=== PATIENT | female | born 1955 | race Hispanic/Latino ===

== ENCOUNTER 2017-06-10 09:55 | Day surgery (SDC) | payer BC ==
--- NOTE | 2017-06-07 14:05 | EKG ---
Test Date: 2017-06-07 Test Time: 10:21:23 [employer] Salesperson: CARMEN MEASUREMENT RESULTS: Intervals: Rate: 55 CO: 170 QRSD: 68 QT: 444 QTc: 424 [place]: P: 19 CO: 170 QRS: 9 T: 16 INTERPRETIVE STATEMENTS: Sinus bradycardia Low voltage QRS Borderline ECG No previous ECG available for comparison Electronically Signed On 06-07-17 14:03:46 CDT by Maxime Ball
[2017-06-10] MEDS: OXYMETAZOLINE HCL 0.05% 30ML NAS SCH ×3 (10:27→10:37)
[2017-06-10] MEDS ORDERED: Ringers Lactate 1,000 ML IV ONE ×2 (10:41→13:30)
[2017-06-10] MEDS ORDERED: ONDANSETRON 4 MG/2 ML VIAL ONE (11:14)
[2017-06-10] MEDS ORDERED: MIDAZOLAM HCL 2 MG/2 ML INJ ONE (11:14)
[2017-06-10] MEDS ORDERED: LIDOCAINE 2% MPF 5 ML VIAL ONE (11:14)
[2017-06-10] MEDS ORDERED: PROPOFOL 200 MG/20 ML VIAL IV ONE (11:14)
[2017-06-10] MEDS ORDERED: FENTANYL CITR 100 MCG/2 ML ONE (11:15)
[2017-06-10] MEDS ORDERED: ROCURONIUM 50 MG/5 ML VIAL IV ONE (11:15)
[2017-06-10] MEDS ORDERED: LIDOCAINE 1% W/EPI 1:100,000 MDV 50 ML VIAL ONE (12:17)
[2017-06-10] MEDS ORDERED: OXYMETAZOLINE HCL 0.05% 30ML NAS ONE (12:59)
[2017-06-10] MEDS ORDERED: DEXAMETHASONE 10 MG/ML VIAL ONE (13:10)
[2017-06-10] MEDS ORDERED: GLYCOPYRROLATE 0.2 MG/ML SYR ONE (13:10)
[2017-06-10] MEDS ORDERED: NEOSTIGMINE 1 MG/ML -5 ML SYRINGE ONE (13:12)
[2017-06-10] MEDS ORDERED: BUPIVACA 0.25%/EPI 0.0005% MDV 50 ML VIAL ONE (13:22)
--- NOTE | 2017-06-10 13:38 | P.BOP ---
Preoperative diagnosis: venous blunt of lip, recurrent sinusitis Postoperative diagnosis: same Primary procedure: excision with primary closure of lip, B NE with dilation of frontal and max Nitroglycerin Neutralizer: NONE,NONE Estimated blood loss: 15ml Specimen: midline lower lip Anesthesia: General Complications: None Drain(s): Nasogastric Implants: none Fluids & blood products: crystalloid 1000ml Transferred to: Recovery Room Condition: Good
--- NOTE | 2017-06-11 01:23 | OP ---
Date of Procedure: 06/10/2017 Surgeon: Elizabeth Whelan MD Preoperative Diagnoses: Lower lip venous galarza and recurrent acute sinusitis. Postoperative Diagnoses: Lower lip venous Galarza and recurrent acute sinusitis with left septal spur a nd chronic rhinitis. Indications For Procedure: Sarah Cook presented with her current acute sinusitis and venous lak e. Post-treatment CT scans did not demonstrate any significant persistent opacification of the sinus es, but the ostiomeatal complex and frontal recess were very narrow. The risks, benefits, and altern atives to the procedure were discussed with the patient and due to concern for discomfort during the procedure, she opted for the procedure under general anesthetic. Description Of Procedure: The patient was brought to the operating room. She was placed under gener al anesthesia. The head of bed was turned to 90 degrees, and the face was prepped in a standard fash ion with Betadine. The face was draped in a sterile fashion. The lip was injected with approximatel y 0.5 mL of 0.25% Marcaine with epi in the area of the venous galarza. A vertical fusiform excision abigail und the venous galarza was performed including mucosa and a portion of the orbicularis keiko muscle. The specimen was sent to pathology for permanent section. Bleeding was controlled using needlepoint Bov ie electrocautery, and the defect was closed in a primary fashion using interrupted 4-0 chromic sutur es. This area was covered with gauze and the attention was turned to the nose. A 0-degree endoscope was used to perform a nasal endoscopy bilaterally and the Entellus balloon dilation system was prepa red in accordance with the uke driver's directions. Using the 0 degree endoscope, the Galt was us ed to carefully medialize the middle turbinate. On the left side, there was a septal spur, but this was not found to be prohibitive in terms of abscess and no septoplasty was indicated. The Entellus b alloon was advanced just behind the uncinate process and carefully repositioned until there was elimi nation within the frontal recess area. The balloon was inflated and removed. Repositioning was diff icult due to moderate amount of bleeding in the area, the balloon was therefore withdrawn and the mid dle meatus was packed with Afrin-soaked pledgets, and attention was turned to the right side. Sequen tial dilation of the right frontal recess was successful. After successful dilation of the right mavrin e, attention was turned to the left and the device was placed within the frontal recess and dilated w ith excellent illumination of the frontal sinus during the final dilation. The balloon was then arthur nfigured to a 125 degree angle for dilation of the maxillary sinuses. Using the 0 degree endoscope, the tip of the instrument was passed into the middle meatus and around the uncinate process. Once in position, the balloon was advanced over the semi-rigid guide and inflated with good medialization of the uncinate process noted. The device was carefully withdrawn and dilation was performed in a acacia lar fashion on the contralateral maxillary sinus. After successful dilation of both maxillary and fr ontal sinuses, Afrin-soaked pledgets were applied. After removal of the pledgets and suctioning of t he nasopharynx, the area was noted to be hemostatic. The patient's face was cleaned and dried, and s he was returned to care of the Anesthesia for awakening, extubation in the operating room, which proc eeded without difficulty. Complications: None. Implants: None. Disposition: The patient will be discharged home later today in the care of her family with saline i rrigations and follow up with Dr. Whelan in 10 days for postoperative evaluation. FARIBA/YOSELIN Voice ID: [id number] Report ID: [id number]
== END 2017-06-10 15:10 | disposition home or self-care (01) ==
LOC: OR 09:55
PROVIDERS: ATTEND Otolaryngology
PROC: 09JY8ZZ Inspection of Sinus, Via Natural or Artificial Opening Endoscopic (ICD-10-PCS; 2017-06-10)
PROC: 0CB10ZX Excision of Lower Lip, Open Approach, Diagnostic (ICD-10-PCS; principal; 2017-06-10 11:15)
DX: K13.0 Diseases of lips (principal); J01.01 Acute recurrent maxillary sinusitis; J31.0 Chronic rhinitis; J34.89 Other specified disorders of nose and nasal sinuses; Z83.3 Family history of diabetes mellitus; Z80.9 Family history of malignant neoplasm, unspecified
CPT/HCPCS: 88305; 93005; J1100; J2250; J2405; J2710; J3010

== ENCOUNTER 2022-08-26 10:15 | Emergency (ER) | payer OTHER ==
--- OUTSIDE RECORDS SUMMARY | 2022-08-26 10:24 | XMS REPORT | Continuity of Care Document ---
:1955 Author Organization [facility] t Address [address] [place] [address] Care Team Providers Name Role Phone FerraroSergio Nusrat Primary Care Physician LANG LOPEZ Attending Clinician Unavailable Nurse, Jasiel Posavanah Immunization Attending Clinician Unavailable Lang Lopez DO Attending Clinician Payers Payer Name Policy Type Policy Number Effective Date Expiration Date [facility] [id number] 2020 2021 CHOICE 00:00:00 00:00:00 Problems This patient has no known problems. Allergies, Adverse Reactions, Alerts Allergy Allergy Status Severity Reaction(s) Onset Inactive Treating Comm ents Source Name Type Date Date Clinician NO KNOWN Drug Active Univers ALLERGIE Class ity of [facility] Social History Social Habit Start Date Stop Date Quantity Comments Source Sex Assigned At [birth year] [facility] 00:00:00 00:00:00 [facility] Smoking Status Start Date Stop Date Source Unknown if ever smoked [facility] Medications This patient has no known medications. Immunizations Ordered Filled Immunization Date Status Comments Hina e Immunization Name Name SARS-COV-2 COVID-19 2021-02-16 Completed Unive rsity of PFIZER VACCINE 00:00:00 [facility] SARS-COV-2 COVID-19 2020-06-02 Completed Unive rsity of PFIZER VACCINE 00:00:00 [facility] SARS-COV-2 COVID-19 2020-05-12 Completed Unive rsity of PFIZER VACCINE 00:00:00 [facility] Procedures Procedure Date / Time Performed Performing Clinician Hina rodriges SARS-COV-2 COVID-19 2021-02-16 14:41:29 Doctor Unassigned, No [facility] [place] VACCINE,0.3ML,IM Name [facility] (PFIZER) Encounters Start End Encounter Admission Attending Care Care Encounter Source Date/Time Date/Time Type Type Clinicians Facility Department ID 2021-02-16 2021-02-16 Outpatient R ZARA [facility] [id number] Univers 08:20:00 08:07:32 [facility] 2021-02-16 2021-02-16 Imm/Inj Nurse, Adc Pob Immunization [facility] [id number] Univers 08:07:23 08:07:32 Visit Lang Lopez [id number] .10 [facility] [id number] Meliza ASHIO [phone] [facility] [address] Results This patient has no known results.
[2022-08-26] MEDS ORDERED: dexAMETHasone 10 MG/ML VIAL ONE (10:37)
--- NOTE | 2022-08-26 10:40 | EDPHYS ---
Physician Documentation [facility] Name: Sarah Cook Age: 67 yrs Sex: Female : 1955 Arrival Date: 08/26/2022 Time: 10:15 Bed 11 Private MD: ED Physician Durga Tomlinson HPI: 08/26 10:25 This 67 yrs old Female presents to ER via Ambulatory with complaints of Sinus jmm Pain, Sinus Congestion. 10:25 The patient or guardian reports cough. Onset: The symptoms/episode began/occurred jmm gradually, at an unknown time. Modifying factors: The symptoms are alleviated by nothing, the symptoms are aggravated by nothing. This is a 67 year old female with a history of hlp, that presents to the ED with complaints of congestion, sinus pressure, and sore throat. Denies fever. But states having malaise and fatigue. . Historical: - Allergies: 10:20 No Known Allergies; ll1 - PMHx: 10:20 Hyperlipidemia; ll1 - PSHx: 10:20 None; ll1 - Immunization history:: Client reports receiving the 2nd dose of the Covid vaccine. - Social history:: Smoking status: Patient denies any tobacco usage or history of. ROS: 10:25 Eyes: Negative for injury, pain, redness, and discharge. jmm 10:25 Cardiovascular: Negative for chest pain, palpitations, and edema, Respiratory: Negative for shortness of breath, cough, wheezing, and pleuritic chest pain, Abdomen/GI: Negative for abdominal pain, nausea, vomiting, diarrhea, and constipation, Back: Negative for injury and pain. 10:25 Constitutional: Positive for fatigue, malaise. 10:25 ENT: Positive for sinus congestion, sore throat. 10:25 All other systems are negative. Exam: 10:25 Constitutional: This is a well developed, well nourished patient who is awake, alert, jmm and in no acute distress. Head/Face: atraumatic. Eyes: EOMI, no conjunctival erythema appreciated 10:25 Chest/axilla: Normal chest wall appearance and motion. Cardiovascular: Regular rate and rhythm. No edema appreciated Respiratory: Normal respirations, no respiratory distress appreciated Abdomen/GI: Non distended Back: Normal ROM Skin: General appearance color normal MS/ Extremity: Moves all extremities, no obvious deformities appreciated, no edema noted to the lower extremities Neuro: Awake and alert Psych: Behavior is normal, Mood is normal, Patient is cooperative and pleasant 10:25 ENT: Posterior pharynx: erythema, that is mild. Vital Signs: 10:23 BP 122 / 79; Pulse 72; Resp 16; Temp 99.2; Pulse Ox 99% ; Weight 72.57 kg; Height 5 ft. ll1 2 in. ; Pain 5/10; 10:23 Body Mass Index 29.26 (72.57 kg, 157.48 cm) ll1 10:23 Pain Scale: Adult ll1 MDM: 10:25 Patient medically screened. [facility] 10:25 Differential Diagnosis: Upper Respiratory Infection Sinusitis Pharyngitis. Data [facility] reviewed: vital signs, nurses notes. I considered the following discharge prescriptions or medication management in the emergency department Medications were administered in the Emergency Department. See MAR. Historians other than the Patient: . Counseling: I had a detailed discussion with the patient and/or guardian regarding: the historical points, exam findings, and any diagnostic results supporting the discharge/admit diagnosis, the need for outpatient follow up, to return to the emergency department if symptoms worsen or persist or if there are any questions or concerns that arise at home. Administered Medications: 10:37 Drug: Dexamethasone IM 10 mg Route: IM; Site: left gluteus; iw 10:45 Follow up: Response: No adverse reaction iw Disposition Summary: 08/26/22 10:40 Discharge Ordered Location: Home [facility] Condition: Stable [facility] Diagnosis - Nasal congestion [facility] - Acute pharyngitis, unspecified [facility] Followup: [facility] - With: Private Physician - When: 2 - 3 days - Reason: Recheck today's complaints, Continuance of care, Re-evaluation by your physician Discharge Instructions: - Discharge Summary Sheet [facility] - Pharyngitis [facility] - Sinusitis, Adult [facility] Forms: - Medication Reconciliation Form [facility] - Thank You Letter [facility] - Antibiotic Education [facility] - Prescription Opioid Use [facility] Prescriptions: - cefdinir 300 mg Oral capsule - take 1 capsule by ORAL route 2 times per day for 10 days; 20 capsule; Refills: [facility] 0, Product Selection Permitted - Medrol (Srikanth) 4 mg Oral Tablets, Dose Pack - take 1 tablet by ORAL route as directed - follow package instructions; 1 jm packet; Refills: 0, Product Selection Permitted Signatures: Yaakov Beckwith PA PA jmm Williams, Irene, RN RN iw Lola Rosario RN RN ll1
--- NOTE | 2022-08-26 10:40 | ER ---
Nurse's Notes [facility] Name: Sarah Cook Age: 67 yrs Sex: Female : 1955 Arrival Date: 08/26/2022 Time: 10:15 Bed 11 Private MD: Diagnosis: Nasal congestion;Acute pharyngitis, unspecified Presentation: 08/26 10:20 Coronavirus screen: Vaccine status: Patient reports receiving the 2nd dose of the covid ll1 vaccine. Client denies travel out of the [place] in the last 14 days. congestion, runny nose, Client presents with at least one sign or symptom that may indicate coronavirus-19. Standard/surgical mask placed on the client. Ebola Screen: Patient denies travel to an Ebola-affected area in the 21 days before illness onset. 10:20 Method Of Arrival: Ambulatory ll1 10:21 Initial Sepsis Screen: Does the patient meet any 2 criteria? No. Patient's initial ll1 sepsis screen is negative. Does the patient have a suspected source of infection? Yes: Other: r/o sinus infection. Risk Assessment: Do you want to hurt yourself or someone else? Patient reports no desire to harm self or others. Onset of symptoms was August 20, 2022. 10:21 Acuity: ISAMAR 4 ll1 10:23 Chief complaint: Patient states: Sinus congestion, drainage, facial pain, watery eyes ll1 since Tuesday. No fevers. Triage Assessment: 10:22 General: Appears in no apparent distress. Behavior is calm, cooperative, appropriate ll1 for age. EENT: Eyes are tearing on outer aspect of conjuctiva of right eye and inner aspect of conjuctiva of right eye Reports nasal congestion nasal discharge pain in right eye, right cheek, nose, left cheek and left eye. Neuro: Reports headache. 10:50 Pain: Also complains of no other associated symptoms. iw Historical: - Allergies: 10:20 No Known Allergies; ll1 - PMHx: 10:20 Hyperlipidemia; ll1 - PSHx: 10:20 None; ll1 - Immunization history:: Client reports receiving the 2nd dose of the Covid vaccine. - Social history:: Smoking status: Patient denies any tobacco usage or history of. Screenin:39 [facility] ED Fall Risk Assessment (Adult) History of falling in the last 3 months, iw including since admission No falls in past 3 months (0 pts). Abuse screen: Denies threats or abuse. Denies injuries from another. Nutritional screening: No deficits noted. Tuberculosis screening: No symptoms or risk factors identified. Assessment: 10:38 General: Appears in no apparent distress. Behavior is calm, cooperative. Pain: iw Complains of pain in face. Neuro: Level of Consciousness is awake, alert, obeys commands, Oriented to person, place, time, situation, Moves all extremities. Full function. Cardiovascular: Patient's skin is warm and dry. Respiratory: Respiratory effort is even, unlabored, Respiratory pattern is regular, symmetrical. Derm: Skin is intact, is healthy with good turgor. Musculoskeletal: Range of motion: intact in all extremities. Vital Signs: 10:23 BP 122 / 79; Pulse 72; Resp 16; Temp 99.2; Pulse Ox 99% ; Weight 72.57 kg; Height 5 ft. ll1 2 in. ; Pain 5/10; 10:23 Body Mass Index 29.26 (72.57 kg, 157.48 cm) ll1 10:23 Pain Scale: Adult ll1 ED Course: 10:17 Patient arrived in ED. rg4 10:18 Yaakov Beckwith PA is PHCP. barb 10:18 Durga Tomlinson MD is Attending Physician. [facility] 10:22 Triage completed. ll1 10:22 Arm band placed on Patient placed in an exam room, on a stretcher. ll1 10:29 Bridget Ramírez, RN is Primary Nurse. iw 10:39 No provider procedures requiring assistance completed. Patient did not have IV access iw during this emergency room visit. 10:50 Patient has correct armband on for positive identification. iw Administered Medications: 10:37 Drug: Dexamethasone IM 10 mg Route: IM; Site: left gluteus; iw 10:45 Follow up: Response: No adverse reaction iw Medication: 10:39 VIS not applicable for this client. iw Outcome: 10:40 Discharge ordered by . [facility] 10:50 Discharged to home ambulatory, with family. iw 10:50 Condition: good 10:50 Discharge instructions given to patient, Instructed on discharge instructions, follow up and referral plans. medication usage, Demonstrated understanding of instructions, follow-up care, medications, Prescriptions given X 2. 10:51 Patient left the ED. iw Signatures: Yaakov Beckwith PA PA jmm Williams, Irene, RN RN iw Samantha De La Cruz4 Lola Rosario RN RN ll1
[2022-08-26 10:55] VITALS: BP 122/79; TEMP 99.2; O2SAT 99
== END 2022-08-26 10:51 | disposition home or self-care (01) ==
LOC: ER 10:15
DX: R09.81 Nasal congestion (principal); J02.9 Acute pharyngitis, unspecified; R53.83 Other fatigue; R53.81 Other malaise
CPT/HCPCS: 96372; 99284; J1100

== ENCOUNTER 2022-08-28 10:28 | Emergency (ER) | payer OTHER ==
--- OUTSIDE RECORDS SUMMARY | 2022-08-28 10:31 | XMS REPORT | Continuity of Care Document ---
:1955 Author Organization [facility] t Address [address] [facility] [place] [address] Care Team Providers Name Role Phone FerraroSergio Nusrat Primary Care Physician LANG LOPEZ Attending Clinician Unavailable Nurse, Jasiel Posavanah Immunization Attending Clinician Unavailable Lang Lopez DO Attending Clinician Payers Payer Name Policy Type Policy Number Effective Date Expiration Date [facility] [id number] 2020 2021 CHOICE 00:00:00 00:00:00 Problems This patient has no known problems. Allergies, Adverse Reactions, Alerts Allergy Allergy Status Severity Reaction(s) Onset Inactive Treating Comm ents Source Name Type Date Date Clinician NO KNOWN Drug Active Univers ALLERGIE Class [facility]y of [facility] Social History Social Habit Start Date Stop Date Quantity Comments Source Sex Assigned At [birth year] [facility] 00:00:00 00:00:00 [facility] Smoking Status Start Date Stop Date Source Unknown if ever smoked [facility] Medications This patient has no known medications. Immunizations Ordered Filled Immunization Date Status Comments Hina e Immunization Name Name SARS-COV-2 COVID-19 2021-02-16 Completed Unive rsity of PFIZER VACCINE 00:00:00 [facility] SARS-COV-2 COVID-19 2020-06-02 Completed Unive rsity of PFIZER VACCINE 00:00:00 [facility] SARS-COV-2 COVID-19 2020-05-12 Completed Unive rsity of PFIZER VACCINE 00:00:00 [facility] Procedures Procedure Date / Time Performed Performing Clinician Hina rodriges SARS-COV-2 COVID-19 2021-02-16 14:41:29 Doctor Unassigned, No [facility] [place] VACCINE,0.3ML,IM Name [facility] (PFIZER) Encounters Start End Encounter Admission Attending Care Care Encounter Source Date/Time Date/Time Type Type Clinicians Facility Department ID 2021-02-16 2021-02-16 Outpatient R ZARA [facility] [id number] Univers 08:20:00 08:07:32 [facility] 2021-02-16 2021-02-16 Imm/Inj Nurse, Adc Pob Immunization [facility] [id number] Univers 08:07:23 08:07:32 Visit Lang Lopez [id number] .10 [facility] [id number] Meliza SAHIO [phone] [facility] [address] Results This patient has no known results.
--- NOTE | 2022-08-28 10:58 | EDPHYS ---
Physician Documentation [facility] Name: Sarah Cook Age: 67 yrs Sex: Female : 1955 Arrival Date: 08/28/2022 Time: 10:28 Bed DX3 Private MD: ED Physician Alexy Alcaraz HPI: 08/28 10:54 This 67 yrs old Female presents to ER via Ambulatory with complaints of Nausea.rn 10:54 The patient presents to the emergency department with nausea. Onset: The rn symptoms/episode began/occurred yesterday. Possible causes: antibiotics. The symptoms are aggravated by nothing. The symptoms are alleviated by nothing. Associated signs and symptoms: Pertinent positives: nausea, Pertinent negatives: abdominal pain, diarrhea, fever. Severity of symptoms: At their worst the symptoms were mild in the emergency department the symptoms are unchanged. The patient has not experienced similar symptoms in the past. The patient has been recently seen at the [facility]. Just seen here 2 days ago, started on steroids and cefdinir, not tolerating them, one or both are causing nausea. Otherwise feeling better after starting zyrtec-d. No fever. NO sob. . Historical: - Allergies: 10:44 No Known Allergies; bp - Home Meds: 10:44 atorvastatin 10 mg Oral tab 1 tab once daily [Active]; bp - PMHx: 10:44 Hyperlipidemia; bp - Immunization history:: Adult Immunizations up to date. - Social history:: Smoking status: Patient denies any tobacco usage or history of. - Family history:: not pertinent. - Hospitalizations: : No recent hospitalization is reported. ROS: 10:54 Constitutional: Negative for fever, chills, and weight loss, Eyes: Negative for injury, rn pain, redness, and discharge, ENT: + nasal congestion and sore throat Neck: Negative for injury, pain, and swelling, Cardiovascular: Negative for chest pain, palpitations, and edema, Respiratory: Negative for shortness of breath, cough, wheezing, and pleuritic chest pain, Neuro: Negative for headache, weakness, numbness, tingling, and seizure. Exam: 10:54 Constitutional: This is a well developed, well nourished patient who is awake, alert, rn and in no acute distress. ENT: MMM, no stridor, no oral swelling Neck: Trachea midline, no masses palpated, and no cervical lymphadenopathy. Supple, full range of motion without nuchal rigidity, or vertebral point tenderness. No Meningismus. Cardiovascular: Regular rate and rhythm. No pulse deficits. Respiratory: No increased work of breathing, no retractions or nasal flaring. Skin: No rash or swelling. Neuro: Awake and alert, GCS 15 Vital Signs: 10:43 BP 127 / 80; Pulse 66; Resp 16; Temp 97.8; Pulse Ox 99% ; bp MDM: 10:34 Patient medically screened. rn 10:54 Differential diagnosis: medication intolerance, nausea, viral syndrome, allergies. Data rn reviewed: vital signs, nurses notes, and as a result, I will discharge patient. Counseling: I had a detailed discussion with the patient and/or guardian regarding: the historical points, exam findings, and any diagnostic results supporting the discharge/admit diagnosis, the need for outpatient follow up, to return to the emergency department if symptoms worsen or persist or if there are any questions or concerns that arise at home. Special discussion: I discussed with the patient/guardian in detail that at this point there is no indication for admission to the hospital. It is understood, however, that if the symptoms persist or worsen the patient needs to return immediately for re-evaluation. 10:54 ED course: Pt requests changing of medication, states has tolerated amoxicillin before. rn Will dc steroids as likely doesn't need them. Recommend nasal spray and OTC allergy medication as well. . Administered Medications: No medications were administered Disposition Summary: 08/28/22 10:58 Discharge Ordered Location: Home rn Problem: new rn Symptoms: have improved rn Condition: Stable rn Diagnosis - Nausea rn Followup: rn - With: Private Physician - When: As needed - Reason: Recheck today's complaints, Re-evaluation by your physician Discharge Instructions: - Discharge Summary Sheet rn - Nausea, Adult rn Forms: - Medication Reconciliation Form rn - Thank You Letter rn - Antibiotic wrap yarn sorter - Prescription Opioid Use rn Prescriptions: - Amoxicillin 875 mg Oral Tablet - take 1 tablet by ORAL route every 12 hours for 10 days; 20 tablet; Refills: 0, rn Product Selection Permitted Signatures: Alexy Alcaraz MD MD rn Peltier, Brian, RN RN bp
--- NOTE | 2022-08-28 10:58 | ER ---
Nurse's Notes [facility] Name: Sarah Cook Age: 67 yrs Sex: Female : 1955 Arrival Date: 08/28/2022 Time: 10:28 Bed DX3 Private MD: Diagnosis: Nausea Presentation: 08/28 10:43 Chief complaint: Patient states: NAUSEA WITH PRESCRIBED ABX x2 DAYS, REQUESTING NEW bp PRESCRIPTION. Coronavirus screen: At this time, the client does not indicate any symptoms associated with coronavirus-19. Ebola Screen: No symptoms or risks identified at this time. Initial Sepsis Screen: Does the patient meet any 2 criteria? No. Patient's initial sepsis screen is negative. Does the patient have a suspected source of infection? No. Patient's initial sepsis screen is negative. Risk Assessment: Do you want to hurt yourself or someone else? Patient reports no desire to harm self or others. Onset of symptoms is unknown. 10:43 Method Of Arrival: Ambulatory bp 10:43 Acuity: ISAMAR 5 bp Triage Assessment: 10:44 General: Appears in no apparent distress. Behavior is calm, cooperative, appropriate bp for age. Pain: Denies pain. EENT: No deficits noted. Neuro: No deficits noted. Cardiovascular: No deficits noted. Respiratory: No deficits noted. GI: Reports nausea. : No signs and/or symptoms were reported regarding the genitourinary system. Derm: No deficits noted. Musculoskeletal: No deficits noted. Historical: - Allergies: 10:44 No Known Allergies; bp - Home Meds: 10:44 atorvastatin 10 mg Oral tab 1 tab once daily [Active]; bp - PMHx: 10:44 Hyperlipidemia; bp - Immunization history:: Adult Immunizations up to date. - Social history:: Smoking status: Patient denies any tobacco usage or history of. - Family history:: not pertinent. - Hospitalizations: : No recent hospitalization is reported. Screenin:48 [facility] ED Fall Risk Assessment (Adult) History of falling in the last 3 months, mb9 including since admission No falls in past 3 months (0 pts) Confusion or Disorientation No (0 pts) Intoxicated or Sedated No (0 pts) Impaired Gait No (0 pts) Mobility Assist Device Used No (0 pt) Altered Elimination No (0 pt) Score/Fall Risk Level 0 - 2 = Low Risk Oriented to surroundings, Maintained a safe environment, Educated pt \T\ family on fall prevention, incl call for assistance when getting out of bed. Abuse screen: Denies threats or abuse. Nutritional screening: No deficits noted. Tuberculosis screening: No symptoms or risk factors identified. Assessment: 11:45 Reassessment: see triage assessment. mb9 Vital Signs: 10:43 BP 127 / 80; Pulse 66; Resp 16; Temp 97.8; Pulse Ox 99% ; bp ED Course: 10:29 Patient arrived in ED. ts1 10:34 Alexy Alcaraz MD is Attending Physician. rn 10:44 Triage completed. bp 11:48 Arm band placed on. mb9 11:48 No provider procedures requiring assistance completed. Patient did not have IV access mb9 during this emergency room visit. Administered Medications: No medications were administered Medication: 11:48 VIS not applicable for this client. mb9 Outcome: 10:58 Discharge ordered by . rn 11:48 Discharged to home ambulatory. mb9 11:48 Condition: stable 11:48 Discharge instructions given to patient, Instructed on discharge instructions, follow up and referral plans. Demonstrated understanding of instructions, follow-up care, medications, Prescriptions given X 1. 11:48 Patient left the ED. mb9 Signatures: Alexy Alcaraz MD MD rn Peltier, Brian RN RN Sandi Cole RN RN mb9 Loulou Ray PAS PAS ts1
[2022-08-28 11:54] VITALS: BP 127/80; TEMP 97.8; O2SAT 99
== END 2022-08-28 11:48 | disposition home or self-care (01) ==
LOC: ER 10:28
DX: R11.0 Nausea (principal); E78.5 Hyperlipidemia, unspecified
CPT/HCPCS: 99283

== ENCOUNTER 2024-07-03 14:25 | Emergency (ER) | payer OTHER ==
--- OUTSIDE RECORDS SUMMARY | 2024-07-03 14:29 | XMS REPORT | Continuity of Care Document ---
Author Name Unknown Address [address] [facility] [place] [address] [facility] Address [address] [facility] [address] [place] [address] Care Team Providers Care Human Resources Hr Representative Name Role Phone Ferraro Sergio Nusrat Primary Care Physician [phone]- [phone] [email or web address] Attending Clinician Unavaila LANG Maxwell Attending Clinician Unavail able Nurse, Adc Pob Immunization Attending Clinician Lang Pelayo DO Attending Clinician [phone] [email or web address] aa_S Admitting Clinician Reneea viridiana Payers Payer Name Policy Type Policy Number Effective Date Expirati on Date Source [facility] - MEDICARE COMPLETE (MEDICARE REPLACEMENT HMO) [id number] [facility] [id number] 2020 00:00:00 2021 00:00:00 Problems Condition Name Condition Details Condition Category Status Onset Date Resolution Date Last Treatment Date Treating Clinician Comments Source Vitamin D deficiency Vitamin D Deficiency Problem Active 05-24 00:00: 00 [facility] Sensation as if bladder still full Sensation as If Bladder Still Full Problem Active 05-20 00:00: 00 [facility] Screening mammograph y Screening Mammograph y Problem Active - 00:00: 00 [facility] Elevated blood-pres sure reading without diagnosis of hypertensi on Elevated Blood-pres sure Reading without Diagnosis of Hypertensi on Problem Active 05-19 00:00: 00 [facility] Urge incontinen ce of urine Urge Incontinen ce of Urine Problem Active 12-05 00:00: 00 [facility] Disorder of bone Disorder of Bone Problem Active 12-05 00:00: 00 [facility] Atrophic vaginitis Atrophic Vaginitis Problem Active 15 00:00: 00 [facility] Bone density finding Bone Density Finding Problem Active 11-17 00:00: 00 [facility] Gynecologi lory examinatio n abnormal Gynecologi lory Examinatio n Abnormal Problem Active 11-17 00:00: 00 [facility] Allergies, Adverse Reactions, Alerts Allergy Name Allergy Type Status Severity Reaction(s) Onset Date Inactive Date Treating Clinician Comments Source NO KNOWN ALLERGIE S Drug Class Active [facility] Social History Social Habit Start Date Stop Date Quantity Comments Source Sex Assigned At 1955 00:00:00 1955 00:00:00 [facility] Smoking Status Start Date Stop Date Source Never Smoker [facility] Unknown if ever smoked [facility] Medications Ordered Medication Name Filled Medication Name Start Date Stop Date Current Medication? Ordering Clinician Indication Dosage Frequency Signature (SIG) Comments Components Source estradiol 0.01% (0.1 mg/gram) vaginal cream 0.5gm as directed; 3 times a week; 30 days estradiol 0.01% (0.1 mg/gram) vaginal cream 0.5gm as directed; 3 times a week; 30 days 05-24 00:00: 00 No estradiol 0.01% (0.1 mg/gram) vaginal cream 0.5gm as directed; 3 times a week; 30 days [facility] atorvastati n atorvastati n No atorvastat in [facility] Vital Signs Vital Name Observation Time Observation Value Comments S ource BMI (Body Mass Index) 2023-05-26 00:00:00 28.7 kg/m2 [facility] Body Weight 2023-05-26 00:00:00 161.8 [lb_av] [facility] Height 2023-05-26 00:00:00 63 [in_i] [facility] BP Diastolic 2023-05-26 00:00:00 71 mm[Hg] [facility] BP Systolic 2023-05-26 00:00:00 135 mm[Hg] [facility] Procedures Procedure Date / Time Performed Performing Clinicia n Source MAMMO, screening, digital, bilateral 2023-05-26 00:00:00 [facility] DEXA 2023-05-26 00:00:00 Veena Wilson edical SARS-COV-2 COVID-19 VACCINE,0.3ML,IM (PFIZER) 2021-02-16 14:41:29 Doctor Unassigned, [place] [facility] Procedure on Root Canal of Tooth 2017-12-05 00:00:00 [facility] Tubal Ligation [facility]ica l Plan of Care Planned Activity Planned Date Details Comments Source Diagnostic Test Pending 2023-05-26 00:00:00 noninvasive colorectal cancer DNA + occult blood screening, QL, stool [code = noninvasive colorectal cancer DNA + occult blood screening, QL, stool] [facility] Encounters Start Date/Time End Date/Time Encounter Type Admission Type Attending Clinicians Care Facility Care Department Encounter ID Source 2023-05-26 00:00:00 2023-05-26 00:00:00 Outpatient [email or web address] [email or web address]_S [facility] [id number] [facility] 2023-05-26 00:00:00 2023-05-26 00:00:00 NINA Levi: [address], [facility] [address], [place] [address] , Ph. [facility] - [email or web address]_La [facility]* [id number] [facility] 2023-05-25 00:00:00 2023-05-25 00:00:00 Outpatient [email or web address] diyala_S [facility] [id number] [facility] 2023-01-19 00:00:00 2023-01-19 00:00:00 Outpatient [email or web address] [email or web address]_S [facility] [id number] [facility] 2021-02-16 08:20:00 2021-02-16 08:07:32 Outpatient LANG ORANTES [facility] [id number] [facility] 2021-02-16 08:07:23 2021-02-16 08:07:32 Imm/Inj Visit Nurse, Jasiel Posavanah Immunizatio Lang Casey [facility] [id number] [facility]
[2024-07-03] MEDS ORDERED: TETRACAINE HCL 0.5% 4ML OPTH ONE (15:51)
[2024-07-03] MEDS ORDERED: FLUORESCEIN SODIUM 1 MG/WRAP ONE (15:51)
--- NOTE | 2024-07-03 16:18 | EDPHYS ---
Physician Documentation [facility] Name: Sarah Cook Age: 68 yrs Sex: Female : 1955 Arrival Date: 07/03/2024 Time: 14:25 Bed 2 Private MD: ED Physician Kwadwo Mcmillan HPI: 07/03 17:28 This 68 yrs old Female presents to ER via Ambulatory with complaints of Eye rt Pain, Eye Problem. 17:28 Patient presents to the ED with concern about 1 hour prior to arrival. Patient states rt this occurred after she wiped, may have hit her eye with a fingernail. Denies other acute complaints at this time, symptoms are mild in severity, no other aggravating or elevating factors. Right eye pain, tearing. Historical: - Allergies: 14:59 No Known Allergies; iw - Home Meds: 14:59 atorvastatin 10 mg Oral tab 1 tab once daily [Active]; iw - PMHx: 14:59 Hyperlipidemia; iw - Immunization history:: Adult Immunizations up to date. - Infectious Disease History:: Denies. - Family history:: not pertinent. - Social history:: Smoking status: unknown. ROS: 17:28 Constitutional: Negative for fever, chills, and weight loss, MS/Extremity: Negative for rt injury and deformity, Skin: Negative for injury, rash, and discoloration, Neuro: Negative for headache, weakness, numbness, tingling, and seizure, 17:28 Eyes: Positive for pain, Negative for redness, Exam: 17:28 Constitutional: This is a well developed, well nourished patient who is awake, alert, rt and in no acute distress. Head/Face: Normocephalic, atraumatic. 17:28 Eyes: Extraocular muscles are intact, pupils equally round and reactive to light, no conjunctival injection noted, there is a focal area of fluorescein uptake at about 12:00 left pupil, Fernandez sign is negative, eyelids everted, no foreign bodies identified. Vital Signs: 15:00 BP 123 / 73; Pulse 64; Resp 18; Temp 98.6(O); Pulse Ox 98% on R/A; iw MDM: 14:57 Medical Screening Exam initiated rt 17:28 Differential diagnosis: Corneal abrasion of Corneal ulcer of. Differential diagnosis: rt Foreign body in. Data reviewed: vital signs, nurses notes. Counseling: I had a detailed discussion with the patient and/or guardian regarding the historical points, exam findings, and any diagnostic results supporting the discharge/admit diagnosis, the need for outpatient follow up, to return to the emergency department if symptoms worsen or persist or if there are any questions or concerns that arise at home. Response to treatment: the patient's symptoms have markedly improved after treatment. 07/03 15:03 Order name: Eye Tray; Complete Time: 15:58 rt 07/03 15:03 Order name: Fluoresene Opth strip; Complete Time: 15:58 rt Administered Medications: 16:11 Drug: Tetracaine Ophthalmic Drops 0.5 % 1 drops Ophthalmic once Route: Ophthalmic; ph Site: right eye; 16:20 Follow up: Response: No adverse reaction ap3 Disposition Summary: 07/03/24 16:18 Discharge Ordered Notes: Location: Home rt Problem: new rt Symptoms: have improved rt Condition: Stable rt Diagnosis - Injury of conjunctiva and corneal abrasion without foreign body, right eye rt Followup: rt - With: Jr Zhao MD - When: 2 - 3 days - Reason: Discharge Instructions: - Discharge Summary Sheet rt - Corneal Abrasion rt Forms: - Medication Reconciliation Form rt - Antibiotic Education rt - Prescription Opioid Use rt - Patient Portal Instructions rt - Leadership Thank You Letter rt Prescriptions: - Erythromycin 5 mg/gram (0.5 %) Ophthalmic ointment - apply 1 ribbon OPHTHALMIC route every 8 hours; 1 Each; Refills: 0, Product rt Selection Permitted Signatures: Bridget Ramírez RN KAMRYN Loly Connor RN RN Renetta Cadena RN RN ap3 Kwadwo Mcmillan MD MD rt
--- NOTE | 2024-07-03 16:18 | ER ---
Nurse's Notes [facility] Name: Sarah Cook Age: 68 yrs Sex: Female : 1955 Arrival Date: 07/03/2024 Time: 14:25 Bed 2 Private MD: Diagnosis: Injury of conjunctiva and corneal abrasion without foreign body, right eye Presentation: 07/03 15:00 Chief complaint: Patient states: RIGHT EYE PAIN/IRRITATION AFTER WIPING it with her iw sleeve. Coronavirus screen: At this time, the client does not indicate any symptoms associated with coronavirus-19. Ebola Screen: No symptoms or risks identified at this time. Mechanism of Injury: No Mechanism of Injury. The patient denies any loss of vision. Initial Sepsis Screen: Does the patient meet any 2 criteria? No. Patient's initial sepsis screen is negative. Does the patient have a suspected source of infection? No. Patient's initial sepsis screen is negative. Risk Assessment: Do you want to hurt yourself or someone else? Patient reports no desire to harm self or others. Onset of symptoms was July 03, 2024. 15:00 Acuity: ISAMAR 4 iw 15:00 Method Of Arrival: Ambulatory iw Triage Assessment: 15:00 General: Appears in no apparent distress. Behavior is calm. Pain: Complains of pain in iw right eye. EENT: Eyes are tearing on outer aspect of conjuctiva of right eye and inner aspect of conjuctiva of right eye Sclera/Cornea are reddened in outer aspect of conjuctiva of right eye and inner aspect of conjuctiva of right eye. Historical: - Allergies: 14:59 No Known Allergies; iw - Home Meds: 14:59 atorvastatin 10 mg Oral tab 1 tab once daily [Active]; iw - PMHx: 14:59 Hyperlipidemia; iw - Immunization history:: Adult Immunizations up to date. - Infectious Disease History:: Denies. - Family history:: not pertinent. - Social history:: Smoking status: unknown. Screenin:18 [facility] ED Fall Risk Assessment (Adult) History of falling in the last 3 months, ap3 including since admission No falls in past 3 months (0 pts) Confusion or Disorientation No (0 pts) Intoxicated or Sedated No (0 pts) Impaired Gait No (0 pts) Mobility Assist Device Used No (0 pt) Altered Elimination No (0 pt) Score/Fall Risk Level 0 - 2 = Low Risk Oriented to surroundings, Maintained a safe environment, Educated pt \T\ family on fall prevention, incl call for assistance when getting out of bed, Assessed \T\ reinforced patient's understanding of fall precautions, Hourly rounding (assess needs \T\ fall precautionary measures) done, Used ambulatory aids as needed (educated on \T\ assisted with). Abuse screen: Denies threats or abuse. Nutritional screening: No deficits noted. Tuberculosis screening: No symptoms or risk factors identified. Assessment: 16:18 General: Appears uncomfortable, Behavior is calm, cooperative, appropriate for age. ap3 Pain: Complains of pain in right eye. Neuro: Level of Consciousness is awake, alert, obeys commands, Oriented to person, place, time, situation. Cardiovascular: Patient's skin is warm and dry. Respiratory: Airway is patent Respiratory effort is even, unlabored, Respiratory pattern is regular, symmetrical. Vital Signs: 15:00 BP 123 / 73; Pulse 64; Resp 18; Temp 98.6(O); Pulse Ox 98% on R/A; iw ED Course: 14:28 Patient arrived in ED. cj3 14:31 Kwadwo Mcmillan MD is Attending Physician. rt 15:00 Arm band placed on. iw 15:01 Triage completed. iw 15:58 Renetta Cadena, RN is Primary Nurse. ap3 16:17 Jr Zhao MD is Referral Physician. rt 16:18 Assist provider with eye exam of right eye. using fluorescein stain, Performed by Kwadwo Mcmillan MD Patient tolerated well. 16:19 Patient has correct armband on for positive identification. Bed in low position. Call ap3 light in reach. Side rails up X 1. Adult w/ patient. Pulse ox on. NIBP on. 16:20 Provided Education on: eye exam. Door closed. Noise minimized. Lights dimmed. ap3 16:26 Patient did not have IV access during this emergency room visit. ap3 Administered Medications: 16:11 Drug: Tetracaine Ophthalmic Drops 0.5 % 1 drops Ophthalmic once Route: Ophthalmic; ph Site: right eye; 16:20 Follow up: Response: No adverse reaction ap3 Medication: 16:19 VIS not applicable for this client. ap3 Outcome: 16:18 Discharge ordered by . rt 16:25 Discharged to home ambulatory, with family, ap3 16:25 Condition: good 16:25 Discharge instructions given to patient, Instructed on discharge instructions, follow up and referral plans. medication usage, Demonstrated understanding of instructions, follow-up care, medications, Prescriptions given X 1, 16:29 Patient left the ED. ap3 Signatures: Bridget Ramírez RN RN iw Loly Connor RN RN ph Renetta Cadena RN RN ap3 Kwadwo Mcmillan MD MD rt Fartun Amaya 3 Corrections: (The following items were deleted from the chart) 15:13 15:00 BP 123 / 73; Pulse 64bpm; Resp 18bpm; Pulse Ox 98% RA; iw iw
[2024-07-03 17:27] VITALS: BP 123/73; TEMP 98.6; O2SAT 98
== END 2024-07-03 16:29 | disposition home or self-care (01) ==
LOC: ER 14:25
DX: S05.01XA Injury of conjunctiva and corneal abrasion without foreign body, right eye, initial encounter (principal)